=== PATIENT | male | born 1990 ===

== ENCOUNTER 2025-06-30 15:45 | Outpatient (CLI) | payer OTHER, SELFPAY ==
--- NOTE | ~2025-06-30 | MR_ITS ---
EXAMINATION: MR ankle RT wo con DATE: 06/30/2025 16:33 INDICATION: Right ankle pain. Achilles tendinitis. TECHNIQUE: Magnetic resonance imaging (MRI) of the right ankle was performed without intravenous contrast. Sequences included sagittal, coronal, and axial proton-density weighted fast spin echo without and with fat saturation. COMPARISON: None. FINDINGS: Bones/other: There is prominent metallic magnetic field artifact along the distal fibula with location suggesting prior lateral plate and screw fixation. Correlate with surgical history. Bone alignment is normal. Normal marrow signal throughout with no reactive edema, fracture or pathologic marrow replacing process. Joint spaces at the ankle, mid and hindfoot are relatively preserved. Medial ankle ligaments: Deep and superficial deltoid ligaments as well as the spring ligament are normal. Lateral ankle ligaments: The anterior and posterior inferior tibiofibular ligaments are normal. The anterior talofibular, calcaneofibular and posterior talofibular ligaments are normal. Tendons: Achilles tendon is normal. The tibialis anterior and extensor hallucis longus and extensor digitorum longus tendons are normal. The tibialis posterior, flexor digitorum longus and flexor hallucis longus tendons are normal. The peroneus longus and brevis tendons appear normal. Portions of the tendons at the level of the retromalleolar groove are obscured by the previously noted magnetic field artifact. There is a low-lying peroneus brevis muscle belly which extends 1.5 similar caudal to the level of the distal tip at the lateral malleolus. Plantar fascia: Plantar aponeurosis is normal. Fluid: Physiologic amount fluid in the joint spaces. No tenosynovitis, bursitis or other abnormal fluid collections. IMPRESSION: 1. Magnetic field artifact suggesting likelihood lateral plate and screw fixation along the distal fibula. Correlate with surgical history. 2. Low-lying peroneus brevis muscle belly which extends up to 1.5 similar caudal to the distal tip of the lateral malleolus. Visualized portions of the peroneus longus and brevis tendons appear normal although portions the level of the retromalleolar groove are obscured by the magnetic field artifact. 3. Normal Achilles tendon. Reviewed, dictated and finalized at location A. IMPRESSION: 1. Magnetic field artifact suggesting likelihood lateral plate and screw fixati on along the distal fibula. Correlate with surgical history. 2. Low-lying peroneus brevis muscle belly which extends up to 1.5 similar cauda l to the distal tip of the lateral malleolus. Visualized portions of the perone us longus and brevis tendons appear normal although portions the level of the r etromalleolar groove are obscured by the magnetic field artifact. 3. Normal Achilles tendon.
== END 2025-06-30 15:46 | disposition home or self-care (01) ==
LOC: MICIMG 15:50
DX: M76.61 Achilles tendinitis, right leg (principal)
CPT/HCPCS: 73721